=== PATIENT | female | born 1950 | race American Indian/Alaskan Native ===

== ENCOUNTER 2017-12-19 00:02 | Emergency (ER) | payer MEDICARE ==
[2017-12-19] MEDS ORDERED: NACL 0.9% 1000 ML 1,000 ML IV ONE ×2 (00:16→03:39)
[2017-12-19] MEDS ORDERED: ZOFRAN IV ONE (00:23)
--- NOTE | 2017-12-19 00:29 | Emergency Department Report ---
HPI - General Chief Complaint: Nausea/Vomiting/Diarrhea Time Seen by Provider: 12/19/17 00:14 - HPI HPI: Room 3 The patient is a 67-year-old female presenting with a chief complaint of nausea vomiting and diarrhea. The patient states since 16:00 she's had frequent nausea vomiting and diarrhea. The patient states she is going to the bathroom every 10 minutes for the above symptoms. Patient denies fever or abdominal pain. Patient denies recent antibiotics. Patient denies any known sick contacts. When asked how she is feeling currently the patient replied she just feels weak. Location: Gastrointestinal system Duration: Constant since 16:00 Quality: Soreness Severity: Moderate Modifying factors: Imodium has not helped Context: See above Mode of transportation: Unknown ED Past Medical Hx - Past Medical History Previous Medical History?: Yes Hx Hypertension: Yes Hx HIV: Yes (CD4 500s November 2017) - Surgical History Additional Surgical History: Hysterectomy, back surgery - Family History Family history: no significant - Social History Smoking Status: Never Smoker Substance Use Type: None (denies illicit drug use), Alcohol (occasional), Prescribed - Medications Home Medications: Home Medications Medication Instructions Recorded Confirmed Last Taken Type Diphenoxylate/Atropine [Lomotil] 2 tab PO QID PRN #20 tablet 12/19/17 Unknown Rx Ondansetron [Zofran ODT TAB] 8 mg PO Q8HR #20 tab.rapdis 12/19/17 Unknown Rx Promethazine [Phenergan] 25 mg NH Q6HR PRN #5 supp.rect 12/19/17 Unknown Rx ED Review of Systems ROS: Stated complaint: DIARRHEA Other details as noted in HPI Constitutional: denies: fever Gastrointestinal: abdominal pain, nausea, vomiting, diarrhea Physical Exam - Physical Exam Vital Signs: Vital Signs 12/19/17 12/19/17 00:04 00:20 Temperature 98.2 F 97.7 F Pulse Rate 100 H 87 Respiratory 19 Rate Blood Pressure 100/60 Blood Pressure 131/61 [Left] O2 Sat by Pulse 98 99 Oximetry Physical Exam: GENERAL: The patient is well-developed well-nourished female lying on stretcher not appearing to be in acute distress. [] HEENT: Normocephalic. Atraumatic. Extraocular motions are intact. Patient has moist mucous membranes. NECK: Supple. Trachea midline CHEST/LUNGS: Clear to auscultation. There is no respiratory distress noted. HEART/CARDIOVASCULAR: Regular. There is no tachycardia. There is no gallop rub or murmur. ABDOMEN: Abdomen is soft, with trace soreness to palpation diffusely. No rebound or guarding. Patient has normal bowel sounds. There is no abdominal distention. SKIN: There is no rash. There is no edema. There is no diaphoresis. NEURO: The patient is awake, alert, and oriented. The patient is cooperative. The patient has normal speech MUSCULOSKELETAL: There is no evidence of acute injury. ED Course Vital Signs 12/19/17 12/19/17 00:04 00:20 Temperature 98.2 F 97.7 F Pulse Rate 100 H 87 Respiratory 19 Rate Blood Pressure 100/60 Blood Pressure 131/61 [Left] O2 Sat by Pulse 98 99 Oximetry - Reevaluation(s) Reevaluation #1: 12/19/17 03:43 Patient tolerating po. There has been no diarrhea in the ED ED Medical Decision Making - Lab Data Result diagrams: 12/19/17 00:18 12/19/17 00:18 Laboratory Tests 12/19/17 12/19/17 12/19/17 00:18 00:18 00:18 WBC 3.6 L RBC 4.25 Hgb 13.1 Hct 39.2 MCV 92 MCH 31 MCHC 33 RDW 14.1 Plt Count 243 Lymph % (Auto) 3.6 L Dawes % (Auto) 7.1 Eos % (Auto) 0.4 Baso % (Auto) 0.1 Lymph # 0.1 L Dawes # 0.3 Eos # 0.0 Baso # 0.0 Seg Neutrophils % 88.8 H Seg Neutrophils # 3.1 Sodium 140 Potassium 4.2 Chloride 106.0 Carbon Dioxide 21 L Anion Gap 17 BUN 30 H Creatinine 1.1 Estimated GFR > 60 BUN/Creatinine Ratio 27 Glucose 164 H Calcium 8.1 L Total Bilirubin 0.40 AST 16 ALT 12 Alkaline Phosphatase 44 Total Protein 6.7 Albumin 3.4 L Albumin/Globulin Ratio 1.0 Lipase 17 Urine Color Urine Turbidity Urine pH Ur Specific [place] Urine Protein Urine Glucose (UA) Urine Ketones Urine Blood Urine Nitrite Urine Bilirubin Urine Urobilinogen Ur Leukocyte Esterase Urine WBC (Auto) Urine RBC (Auto) Urine Mucus 12/19/17 03:09 WBC RBC Hgb Hct MCV MCH MCHC RDW Plt Count Lymph % (Auto) Dawes % (Auto) Eos % (Auto) Baso % (Auto) Lymph # Dawes # Eos # Baso # Seg Neutrophils % Seg Neutrophils # Sodium Potassium Chloride Carbon Dioxide Anion Gap BUN Creatinine Estimated GFR BUN/Creatinine Ratio Glucose Calcium Total Bilirubin AST ALT Alkaline Phosphatase Total Protein Albumin Albumin/Globulin Ratio Lipase Urine Color Yellow Urine Turbidity Clear Urine pH 5.0 Ur Specific [place] > 1.050 H Urine Protein <15 mg/dl Urine Glucose (UA) Neg Urine Ketones Neg Urine Blood Neg Urine Nitrite Neg Urine Bilirubin Neg Urine Urobilinogen < 2.0 Ur Leukocyte Esterase Neg Urine WBC (Auto) < 1.0 Urine RBC (Auto) < 1.0 Urine Mucus 1+ - Radiology Data Radiology results: report reviewed (CT abdomen and pelvis, right upper quadrant ultrasound), image reviewed (CT abdomen and pelvis, right upper quadrant ultrasound) FINAL REPORT EXAM: CT ABDOMEN PELVIS W CON TECHNIQUE: CT evaluation performed of the abdomen and pelvis following IV and oral contrast administration. Coronal and sagittal imaging also provided for interpretation. Additional axial delayed images were submitted. PRIORS: None. FINDINGS: Lower thorax: The lung bases demonstrate probable atelectasis. No pleural effusion. The visualized portions of the heart are normal. Liver: No focal lesions identified of the liver. No intrahepatic biliary ductal dilation. Gallbladder/ biliary system: No cholelithiasis. Distended with bile with mild adjacent inflammatory changes. Spleen: No splenic lesions are seen. Pancreas: No pancreatic lesions are seen. No pancreatic duct dilation. Kidneys: No kidney lesions identified. No hydronephrosis. No ureteral or renal calcifications. The delayed images demonstrate symmetric bilateral excretion of contrast into the ureteral system without focal abnormal filling defect. Adrenal glands: No adrenal masses. Vasculature: Moderate atherosclerotic vascular disease. Bowel, mesentery, peritoneum: No bowel obstruction. Mild diverticulosis, no adjacent inflammatory change. The appendix is not visualized however there is no inflammatory change in the right lower quadrant. The distal stomach and proximal duodenum wall appears mildly thickened. Urinary bladder: No calculi or wall thickening. Abdominal wall: No abdominal wall hernia or subcutaneous findings. Bones: No acute osseous abnormality. IMPRESSION: 1. The gallbladder is distended and there are adjacent inflammatory changes in the surrounding fat. No calcified gallstones are evident. Correlation with clinical exam and recommend dedicated right upper quadrant ultrasound if concern for acute cholecystitis. 2. Mild wall thickening of the distal stomach and proximal duodenum. Findings may be secondary to adjacent gallbladder inflammation or gastroenteritis. Correlation with clinical exam requested. 3. No obstructive uropathy. HISTORY: Transcribed By: DT Dictated By: JAMEEL TUCKER DO Electronically Authenticated By: JAMEEL TUCKER DO Signed Date/Time: 12/19/17215 DD/ 5 TD/TT: 12/19/17215 FINAL REPORT EXAM: US ABDOMEN LIMITED HISTORY: nausea vomiting, abnormal gallbladder on CT COMPARISON: CT of the abdomen and pelvis from the same date. TECHNIQUE: Several real-time grayscale and color Doppler images were obtained. FINDINGS: No shadowing gallstones. Borderline gallbladder wall thickening measuring up to 3-4 millimeters. No biliary dilatation. The common bile duct measures up to 4 millimeters. Mild fatty infiltration of the visualized liver. Right kidney measures 9.4 centimeters in length. No hydronephrosis. IMPRESSION: No cholelithiasis or biliary dilatation. Borderline gallbladder wall thickening. If there is continued clinical concern for acute cholecystitis, nuclear medicine HIDA scan may be of benefit for further evaluation. Transcribed By: LMDerrick Dictated By: SHELLI QUINONES MD Electronically Authenticated By: SHELLI QUINONES MD Signed Date/Time: 12/19/17329 DD/ 9 TD/TT: 12/19/17329 - Differential Diagnosis gastroenteritis, partial small bowel obstruction, UTI, pancreatitis Critical care attestation.: If time is entered above; I have spent that time in minutes in the direct care of this critically ill patient, excluding procedure time. ED Disposition Clinical Impression: Nausea vomiting and diarrhea, Dehydration Disposition: -01 TO HOME OR SELFCARE Is pt being admited?: No Does the pt Need Aspirin: No Condition: Stable Additional Instructions: Return to the emergency department immediately should you develop worsening symptoms, fever, inability to tolerate food or liquid or any other concerns. Prescriptions: Diphenoxylate/Atropine [Lomotil] 2 tab PO QID PRN #20 tablet PRN Reason: Diarrhea Ondansetron [Zofran ODT TAB] 8 mg PO Q8HR #20 tab.rapdis Promethazine [Phenergan] 25 mg NH Q6HR PRN #5 supp.rect PRN Reason: Vomiting Referrals: MIKE RIZZO MD [Staff Physician] - 3-5 Days (Dr. Rizzo is a sidewalk inspector. Please follow up with him for further evaluation) Time of Disposition: 03:43 (DC after IV fluids)
[2017-12-19 00:50] LABS: Alanine Aminotransferase 12 units/L (7-56); Albumin 3.4 g/dL (3.9-5); BUN/Creatinine Ratio 27; Blood Urea Nitrogen 30 mg/dL (7-17); Calcium 8.1 mg/dL (8.4-10.2); Hemolysis Index 0
[2017-12-19 01:39] LABS: Basophils % (Auto) 0.1 % (0.0-1.8); Eosinophils % (Auto) 0.4 % (0.0-4.3); Hematocrit 39.2 % (30.3-42.9); Hemoglobin 13.1 gm/dl (10.1-14.3); Lymphocytes # (Auto) 0.1 K/mm3 (1.2-5.4); Lymphocytes % (Auto) 3.6 % (13.4-35.0); Mean Corpuscular HGB Conc 33 % (30-34); Mean Corpuscular Hemoglobin 31 pg (28-32); Mean Corpuscular Volume 92 fl (79-97); Monocytes # (Auto) 0.3 K/mm3 (0.0-0.8); Monocytes % (Auto) 7.1 % (0.0-7.3); Platelet Count 243 K/mm3 (140-440); Red Blood Count 4.25 M/mm3 (3.65-5.03); Red Cell Distribution Width 14.1 % (13.2-15.2)
--- NOTE | 2017-12-19 02:20 | Cat Scan Report ---
FINAL REPORT EXAM: CT ABDOMEN PELVIS W CON TECHNIQUE: CT evaluation performed of the abdomen and pelvis following IV and oral contrast administration. Coronal and sagittal imaging also provided for interpretation. Additional axial delayed images were submitted. PRIORS: None. FINDINGS: Lower thorax: The lung bases demonstrate probable atelectasis. No pleural effusion. The visualized portions of the heart are normal. Liver: No focal lesions identified of the liver. No intrahepatic biliary ductal dilation. Gallbladder/ biliary system: No cholelithiasis. Distended with bile with mild adjacent inflammatory changes. Spleen: No splenic lesions are seen. Pancreas: No pancreatic lesions are seen. No pancreatic duct dilation. Kidneys: No kidney lesions identified. No hydronephrosis. No ureteral or renal calcifications. The delayed images demonstrate symmetric bilateral excretion of contrast into the ureteral system without focal abnormal filling defect. Adrenal glands: No adrenal masses. Vasculature: Moderate atherosclerotic vascular disease. Bowel, mesentery, peritoneum: No bowel obstruction. Mild diverticulosis, no adjacent inflammatory change. The appendix is not visualized however there is no inflammatory change in the right lower quadrant. The distal stomach and proximal duodenum wall appears mildly thickened. Urinary bladder: No calculi or wall thickening. Abdominal wall: No abdominal wall hernia or subcutaneous findings. Bones: No acute osseous abnormality. IMPRESSION: 1. The gallbladder is distended and there are adjacent inflammatory changes in the surrounding fat. No calcified gallstones are evident. Correlation with clinical exam and recommend dedicated right upper quadrant ultrasound if concern for acute cholecystitis. 2. Mild wall thickening of the distal stomach and proximal duodenum. Findings may be secondary to adjacent gallbladder inflammation or gastroenteritis. Correlation with clinical exam requested. 3. No obstructive uropathy. HISTORY:
[2017-12-19 03:17] LABS: Bilirubin,Urine NEG (Negative); Blood,Urine NEG (Negative); Color,Urine Yellow (Yellow); Mucus,Urine 1+ /HPF; Protein,Urine <15 mg/dL mg/dL (Negative); RBC,Urine < 1.0 /HPF (0.0-6.0); Urobilinogen,Urine < 2.0 mg/dL (<2.0); WBC,Urine < 1.0 /HPF (0.0-6.0)
--- NOTE | 2017-12-19 03:35 | Ultrasound Report ---
FINAL REPORT EXAM: US ABDOMEN LIMITED HISTORY: nausea vomiting, abnormal gallbladder on CT COMPARISON: CT of the abdomen and pelvis from the same date. TECHNIQUE: Several real-time grayscale and color Doppler images were obtained. FINDINGS: No shadowing gallstones. Borderline gallbladder wall thickening measuring up to 3-4 millimeters. No biliary dilatation. The common bile duct measures up to 4 millimeters. Mild fatty infiltration of the visualized liver. Right kidney measures 9.4 centimeters in length. No hydronephrosis. IMPRESSION: No cholelithiasis or biliary dilatation. Borderline gallbladder wall thickening. If there is continued clinical concern for acute cholecystitis, nuclear medicine HIDA scan may be of benefit for further evaluation.
[2017-12-19] MEDS ORDERED: LOMOTIL PO ONE (03:39)
[2017-12-19 05:18] VITALS: BP 148/69
== END 2017-12-19 05:48 | disposition home or self-care (01) ==
LOC: ED 00:02
DX: E86.0 Dehydration (principal); R11.2 Nausea with vomiting, unspecified; R10.9 Unspecified abdominal pain; R19.7 Diarrhea, unspecified; I10 Essential (primary) hypertension
CPT/HCPCS: 36415; 74177; 76705; 80053; 81001; 83690; 85025; 96361; 96374; 99284; J2405; J7030; Q9967